=== PATIENT | female | born 1950 | race Two or more races ===

== ENCOUNTER 2024-03-22 14:41 | Inpatient (IN) | payer OTHER ==
[~2024-03-22] VITALS: Ht 160 cm; Wt 53.5 kg
[2024-03-22] MEDS ORDERED: ALPRAZOLAM ODT1 MG PO (15:15)
[2024-03-22] MEDS ORDERED: LEXAPRO5 MG PO (15:15)
[2024-03-22] MEDS ORDERED: 0.9 % SODIUM CHLORIDE 1,000 ML IV STA (16:26)
[2024-03-22] MEDS ORDERED: MEPERIDINE HCL/PF 50 MG/ML VIAL IM STA (16:27)
[2024-03-22] MEDS ORDERED: ONDANSETRON HCL 2 MG/ML VIAL IV STA (16:28)
[2024-03-22] MEDS ORDERED: PROMETHAZINE HCL 25 MG/ML AMPUL IM STA (16:28)
[2024-03-22] MEDS ORDERED: ONDANSETRON HCL 2 MG/ML VIAL ONE (16:33)
[2024-03-22] MEDS ORDERED: PROMETHAZINE HCL 25 MG/ML AMPUL ONE (16:33)
[2024-03-22 16:57] LABS: HEMOGLOBIN 12.7 g/dL (12.0-15.00); MEAN CORPUSCULAR HEMOGLOBIN 30.4 pg (27.00-32.0); MEAN CORPUSCULAR HGB CONC 33.4 g/dl (32.0-36.0); RED BLOOD COUNT 4.17 M/uL (4.00-6.00)
[2024-03-22 16:57] LABS: URINE APPEARANCE Clear; URINE BILIRRUBIN Negative (NEGATIVE); URINE BLOOD Negative; URINE COLOR Yellow; URINE GLUCOSE Negative (NEGATIVE); URINE LEUKOCYTE Trace; URINE NITRATE Negative; URINE PROTEIN 30 (NEGATIVE)
[2024-03-22 16:58] LABS: PLATELET COUNT 260 K/uL (150-450); RED CELL DISTRIBUTION WIDTH 13.2 % (11.5-14.5)
[2024-03-22 16:58] LABS: URINE BACTERIA 50.1 uL (0.0-1933); URINE EPITHELIAL CELLS 6.7 uL (0.0-38.8); URINE RBC 26.9 uL (0.0-20.8); URINE WBC 14.8 uL (0.0-23.2)
[2024-03-22 17:07] LABS: URINE KETONE 40 (NEGATIVE)
[2024-03-22 17:12] LABS: INR 1.02; PARTIAL THROMBOPLASTIN TIME 25.4 SECONDS (22.0-34.0); PROTHROMBIN TIME 11.1 SECONDS (9.0-11.5)
[2024-03-22] MEDS ORDERED: METRONIDAZOLE/SODIUM CHLORIDE 500 MG/100 ML PIGGYBACK IV STA (17:17)
[2024-03-22] MEDS ORDERED: METRONIDAZOLE/SODIUM CHLORIDE 500 MG/100 ML PIGGYBACK IV ONE (17:19)
[2024-03-22 17:24] LABS: ALBUMIN 3.6 gm/dL (3.4-5.0); BILIRUBIN TOTAL 2.33 mg/dL (0.3-1.2); CALCIUM 9.1 mg/dL (8.5-10.1); CREATININE SERUM 0.56 mg/dL (0.55-1.02); GFR 106.41; GLOBULINA 3.5 G/DL (2.4-3.5); POTASSIUM 3.41 mEq/L (3.5-5.1); TOTAL PROTEIN 7.1 gm/dL (6.4-8.2)
[2024-03-22] MEDS ORDERED: ACETAMINOPHEN 500 MG GEL..CAP PO PRN (18:30)
[2024-03-22] MEDS ORDERED: MORPHINE SULFATE 4 MG/ML CARTRIDGE IV PRN (18:30)
[2024-03-22] MEDS ORDERED: 0.9 % SODIUM CHLORIDE 1,000 ML IV SCH (18:30)
[2024-03-22] MEDS ORDERED: KETOROLAC TROMETHAMINE 30 MG VIAL IU ONE (18:45)
[2024-03-22] MEDS ORDERED: ONDANSETRON HCL 4 MG in 0.9 % SODIUM CHLORIDE 50 ML IV PRN (18:45)
[2024-03-22] MEDS ORDERED: KETOROLAC TROMETHAMINE 30 MG VIAL ONE (19:00)
[2024-03-22] MEDS ORDERED: CIPROFLOXACIN IN 5 % DEXTROSE 400 MG/200 ML PIGGYBAG IV ONE (19:00)
[2024-03-22] MEDS ORDERED: CIPROFLOXACIN IN 5 % DEXTROSE 200 ML IV SCH (21:00)
[2024-03-23] VITALS: BP 124/67; O2SAT 99
[2024-03-23] MEDS ORDERED: ACETAMINOPHEN 500 MG GEL..CAP PO ONE (00:51)
[2024-03-23] MEDS ORDERED: METRONIDAZOLE/SODIUM CHLORIDE 500 MG/100 ML PIGGYBACK IV ONE ×2 (00:52→07:23)
[2024-03-23] MEDS ORDERED: METRONIDAZOLE/SODIUM CHLORIDE 100 ML IV SCH (01:00)
[2024-03-23 07:15] VITALS: BP 90/51; O2SAT 98
[2024-03-23] MEDS ORDERED: CIPROFLOXACIN IN 5 % DEXTROSE 400 MG/200 ML PIGGYBAG IV ONE (07:23)
[2024-03-23] MEDS ORDERED: FAMOTIDINE/PF 20 MG/2 ML VIAL ONE (07:24)
[2024-03-23] MEDS ORDERED: FAMOTIDINE/PF 20 MG in 0.9 % SODIUM CHLORIDE 8 ML IV PUSH SCH (09:00)
[2024-03-23] MEDS ORDERED: PIPERACILLIN/TAZOBACTAM SODIUM 4.5 GM in 0.9 % SODIUM CHLORIDE 100 ML IV SCH (13:17)
[2024-03-23 15:56] VITALS: BP 102/56; O2SAT 96
[2024-03-23] MEDS ORDERED: BUPIVACAINE HCL/MPF 0.5% 30ML VIAL ONE (17:28)
[2024-03-23] MEDS ORDERED: KETOROLAC TROMETHAMINE 30 MG VIAL IV PRN (20:00)
[2024-03-23] MEDS ORDERED: PIPERACILLIN/TAZOBACTAM SODIUM 3.375 GM VIAL IV ONE (21:42)
[2024-03-23 22:08] VITALS: BP 121/58; O2SAT 97
[2024-03-24 00:30] VITALS: BP 107/54; O2SAT 95
[2024-03-24 08:00] VITALS: BP 105/63; O2SAT 96
[2024-03-24] MEDS ORDERED: LACTOBACILLUS ACIDOPHILUS 1 CAP CAP PO SCH (09:00)
[2024-03-24] MEDS ORDERED: SIMETHICONE 125 MG CAPSULE PO SCH (09:00)
[2024-03-24] MEDS ORDERED: SUCRALFATE 1 G TABLET PO SCH (09:00)
[2024-03-24 11:51] LABS: HEMATOCRIT 36.9 % (36.0-45.00); HEMOGLOBIN 12.4 g/dL (12.0-15.00); MEAN CELL VOLUME 92.6 fL (80.00-100.00); MEAN CORPUSCULAR HGB CONC 33.5 g/dl (32.0-36.0); PLATELET COUNT 239 K/uL (150-450); RED BLOOD COUNT 3.98 M/uL (4.00-6.00); RED CELL DISTRIBUTION WIDTH 13.2 % (11.5-14.5)
[2024-03-24 12:34] LABS: BILIRUBIN TOTAL 2.47 mg/dL (0.3-1.2); CALCIUM 8.6 mg/dL (8.5-10.1); CREATININE SERUM 0.43 mg/dL (0.55-1.02); GFR 144.34; GLOBULINA 3.3 G/DL (2.4-3.5); POTASSIUM 3.88 mEq/L (3.5-5.1); TOTAL PROTEIN 6.3 gm/dL (6.4-8.2)
[2024-03-25 04:17] VITALS: BP 116/66; O2SAT 96
[2024-03-25 09:43] VITALS: BP 139/63; O2SAT 98
[2024-03-25 16:16] VITALS: BP 128/60; O2SAT 98
[2024-03-26 00:18] VITALS: BP 125/56; O2SAT 95
[2024-03-26 07:49] LABS: HEMATOCRIT 33.7 % (36.0-45.00); HEMOGLOBIN 11.8 g/dL (12.0-15.00); MEAN CELL VOLUME 89.4 fL (80.00-100.00); MEAN CORPUSCULAR HEMOGLOBIN 31.4 pg (27.00-32.0); MEAN CORPUSCULAR HGB CONC 35.1 g/dl (32.0-36.0); PLATELET COUNT 284 K/uL (150-450); RED BLOOD COUNT 3.77 M/uL (4.00-6.00); RED CELL DISTRIBUTION WIDTH 12.8 % (11.5-14.5)
[2024-03-26 08:00] VITALS: BP 122/66; O2SAT 97
[2024-03-26 08:17] LABS: CALCIUM 7.6 mg/dL (8.5-10.1)
[2024-03-26 10:15] LABS: GFR 269.88
[2024-03-26 14:42] LABS: CREATININE SERUM 0.25 mg/dL (0.55-1.02)
[2024-03-26] MEDS ORDERED: POTASSIUM CHLORIDE 20MEQ/100ML H2O PB IV SCH (16:00)
[2024-03-26 16:24] VITALS: BP 117/82; O2SAT 95
[2024-03-27 01:15] VITALS: BP 123/57; O2SAT 97
[2024-03-27 07:55] LABS: CALCIUM 7.5 mg/dL (8.5-10.1); CREATININE SERUM 0.34 mg/dL (0.55-1.02); GFR 189.26
[2024-03-27 08:00] VITALS: BP 124/60; O2SAT 100
[2024-03-27 10:02] LABS: POTASSIUM 2.87 mEq/L (3.5-5.1)
[2024-03-27 16:47] VITALS: BP 117/80; O2SAT 95
[2024-03-27] MEDS ORDERED: POTASSIUM CHLORIDE 20MEQ/100ML H2O PB IV SCH (17:00)
[2024-03-27 23:57] VITALS: BP 141/79; O2SAT 100
[2024-03-28 07:45] LABS: HEMATOCRIT 33.8 % (36.0-45.00); HEMOGLOBIN 11.7 g/dL (12.0-15.00); MEAN CELL VOLUME 89.8 fL (80.00-100.00); MEAN CORPUSCULAR HGB CONC 34.5 g/dl (32.0-36.0); PLATELET COUNT 325 K/uL (150-450); RED BLOOD COUNT 3.76 M/uL (4.00-6.00)
[2024-03-28 08:33] VITALS: BP 114/58; O2SAT 98
[2024-03-28 08:34] LABS: CALCIUM 8.2 mg/dL (8.5-10.1); CREATININE SERUM 0.3 mg/dL (0.55-1.02); GFR 218.68; POTASSIUM 3.37 mEq/L (3.5-5.1)
[2024-03-28 16:03] VITALS: BP 129/63; O2SAT 100
[2024-03-29] VITALS: BP 119/58; O2SAT 95
[2024-03-29] MEDS ORDERED: LEVOFLOXACIN750 MG PO (08:38)
[2024-03-29 08:52] VITALS: BP 116/62; O2SAT 99
== END 2024-03-29 14:19 | disposition home or self-care (01) | DRG 398 ==
LOC: ER 14:43 → SEC-K 19:18 → SURG 19:18
PROVIDERS: Student in an Organized Health Care Education/Training Program; Surgery; ADMIT Internal Medicine; ATTEND Internal Medicine
PROC: BW21ZZZ Computerized Tomography (CT Scan) of Abdomen and Pelvis (ICD-10-PCS; 2024-03-22)
PROC: 0W9F3ZZ Drainage of Abdominal Wall, Percutaneous Approach (ICD-10-PCS; 2024-03-23)
PROC: 0DTJ4ZZ Resection of Appendix, Percutaneous Endoscopic Approach (ICD-10-PCS; principal; 2024-03-23 18:30)
DX: K35.32 Acute appendicitis with perforation, localized peritonitis, and gangrene, without abscess (principal); R65.10 Systemic inflammatory response syndrome (SIRS) of non-infectious origin without acute organ dysfunction